=== PATIENT | male | born 1950 | race Caucasian/White ===

== ENCOUNTER 2018-04-30 10:09 | Inpatient (IN) | payer MEDICARE, MEDICAID ==
[2018-04-30] MEDS: SOD CHLORIDE 0.9% 1,000 ML IV (10:29)
[2018-04-30] MEDS: LORAZEPAM 2 MG INJ IV (10:29)
[2018-04-30 10:41] LABS: ADD MAN DIFF? NO
[2018-04-30 10:42] LABS: WHITE BLOOD COUNT 16.1 10^3/ul (4.8-10.8)
[2018-04-30 10:42] LABS: HEMATOCRIT 26.4 % (42.0-52.0); HEMOGLOBIN 8.1 g/dl (14.0-18.0); MEAN CORPUSCULAR HEMOGLOBIN 26.8 pg (29.0-33.0); MEAN CORPUSCULAR HGB CONC 30.7 g/dl (32.0-37.0); MEAN CORPUSCULAR VOLUME 87.4 fl (82.0-101.0); RED BLOOD COUNT 3.02 10^6/ul (4.70-6.10); RED CELL DISTRIBUTION WIDTH 15.2 % (11.5-14.5)
[2018-04-30 10:43] LABS: BASOPHIL # 0.1 10^3/ul (0.0-0.1); BASOPHILS % 0.3 % (0.0-2.0); EOSINOPHILS % 0.2 % (0.0-7.0); LYMPHOCYTES % 6.2 % (15.0-51.0); MEAN PLATELET VOLUME 9.5 fl (7.4-10.4); MONOCYTE # 0.9 10^3/ul (0.3-0.9); MONOCYTES % 5.8 % (0.0-11.0); NEUTROPHILS % 86.9 % (39.0-77.0); PLATELET COUNT 393 10^3/UL (140-415)
[2018-04-30 11:00] LABS: INR 1.11; PROTIME 14.5 Sec (11.9-14.9); PT RATIO 1.1
[2018-04-30 11:01] LABS: PARTIAL THROMBOPLASTIN TIME 30.9 Sec (23.0-35.0)
[2018-04-30 11:04] LABS: ALANINE AMINOTRANSFERASE 34 IU/L (13-69); ALBUMIN 3.2 g/dl (3.3-4.9); ALBUMIN/GLOBULIN RATIO 1.03; ALKALINE PHOSPHATASE 67 IU/L (42-121); ANION GAP 11 (5-13); ASPARTATE AMINO TRANSFERASE 37 IU/L (15-46); BILIRUBIN,INDIRECT 0.1 mg/dl (0-1.1); BILIRUBIN,TOTAL 0.1 mg/dl (0.2-1.3); BLOOD UREA NITROGEN 41 mg/dl (7-20); CALCIUM 8.7 mg/dl (8.4-10.2); CARBON DIOXIDE 25 mmol/L (21-31); CHLORIDE 103 mmol/L (97-110); CREATININE 1.01 mg/dl (0.61-1.24); Estimated GFR > 60 mL/min (>60); GLUCOSE 132 mg/dl (70-220); POTASSIUM 4.6 mmol/L (3.5-5.1); SODIUM 139 mmol/L (135-144); TOTAL PROTEIN 6.3 g/dl (6.1-8.1)
[2018-04-30] MEDS: PANTOPRAZOLE IV 80 MG in SOD CHLORIDE 0.9% 100 ML IVPB (11:05)
[2018-04-30 11:14] LABS: TROPONIN-I < 0.012 ng/ml (0.000-0.120)
[2018-04-30] MEDS ORDERED: ONDANSETRON 4 MG INJ IV ×2 (12:00→13:30)
[2018-04-30] MEDS ORDERED: ACETAMINOPHEN 325 MG TAB PO (12:00)
[2018-04-30] MEDS ORDERED: NACL 0.9% 3 ML SYG IV (13:30)
[2018-04-30] MEDS: METOCLOPRAMIDE 10 MG INJ IV ×3 (14:18→23:53)
[2018-04-30] MEDS: MAGNESIUM HYDROXIDE 30ML CUP PO (14:18)
[2018-04-30] MEDS: OXYCODONE/ACETAMINOPHEN (5/325) TAB PO (14:19)
[2018-04-30] MEDS: DOCUSATE SODIUM 100 MG CAP PO ×2 (14:19→23:53)
[2018-04-30 14:22] LABS: IRON 34 ug/dl (35-150)
[2018-04-30 14:32] LABS: % IRON SATURATION 10 % SAT (22-52); TOTAL IRON BINDING CAPACITY 347 ug/dl (241-421)
[2018-04-30 15:01] LABS: FERRITIN 9.2 ng/ml (11.1-264.0)
[2018-04-30 15:31] LABS: FOLATE 6.1 ng/ml (2.8-20.0)
[2018-04-30] MEDS: morphine 2 MG INJ IV (16:07)
[2018-04-30] MEDS ORDERED: HYDROmorphONE 2 MG/ML SYG IV (18:00)
[2018-04-30] MEDS: DIPHENHYDRAMINE 50 MG INJ IV ×2 (18:47→23:53)
[2018-04-30 18:51] LABS: HEMATOCRIT 19.9 % (42.0-52.0)
[2018-04-30 18:57] LABS: HEMOGLOBIN 6.3 g/dl (14.0-18.0)
[2018-04-30] MEDS: ATORVASTATIN 40 MG TAB PO (20:44)
[2018-04-30] MEDS: LEVETIRACETAM 500 MG TAB PO (20:44)
[2018-04-30] MEDS: SOD CHLORIDE 0.9% 500 ML IV (20:44)
[2018-04-30] MEDS: PANTOPRAZOLE 40 MG INJ IV (20:44)
[2018-04-30] MEDS: traZODone 50 MG TAB PO (20:45)
[2018-04-30 23:10] LABS: IMMEDIATE SPIN CROSSMATCH 1 2
[2018-04-30] MEDS: MIDODRINE 5 MG TAB PO (23:53)
[2018-05-01] MEDS: ACETAMINOPHEN 325 MG TAB PO (02:30)
[2018-05-01] MEDS: DIPHENHYDRAMINE 50 MG INJ IV (06:00)
[2018-05-01 06:21] LABS: ADD MAN DIFF? NO
[2018-05-01 06:27] LABS: WHITE BLOOD COUNT 10.7 10^3/ul (4.8-10.8)
[2018-05-01 06:27] LABS: BASOPHIL # 0.1 10^3/ul (0.0-0.1); BASOPHILS % 0.5 % (0.0-2.0); EOSINOPHILS # 0.1 10^3/ul (0.0-0.5); HEMOGLOBIN 9.3 g/dl (14.0-18.0); LYMPHOCYTES # 0.9 10^3/ul (0.8-2.9); LYMPHOCYTES % 8.5 % (15.0-51.0); MEAN CORPUSCULAR HEMOGLOBIN 27.4 pg (29.0-33.0); MEAN CORPUSCULAR HGB CONC 32.1 g/dl (32.0-37.0); MEAN CORPUSCULAR VOLUME 85.3 fl (82.0-101.0); MEAN PLATELET VOLUME 9.5 fl (7.4-10.4); MONOCYTE # 0.5 10^3/ul (0.3-0.9); MONOCYTES % 4.6 % (0.0-11.0); NEUTROPHIL # 9.1 10^3/ul (1.6-7.5); NEUTROPHILS % 84.9 % (39.0-77.0); PLATELET COUNT 303 10^3/UL (140-415); RED CELL DISTRIBUTION WIDTH 15.7 % (11.5-14.5)
[2018-05-01 06:59] LABS: ALANINE AMINOTRANSFERASE 44 IU/L (13-69); ALBUMIN 2.9 g/dl (3.3-4.9); ALBUMIN/GLOBULIN RATIO 1.16; ALKALINE PHOSPHATASE 54 IU/L (42-121); ANION GAP 7 (5-13); ASPARTATE AMINO TRANSFERASE 53 IU/L (15-46); BILIRUBIN,INDIRECT 0.5 mg/dl (0-1.1); BILIRUBIN,TOTAL 0.5 mg/dl (0.2-1.3); BLOOD UREA NITROGEN 36 mg/dl (7-20); CALCIUM 8.1 mg/dl (8.4-10.2); CARBON DIOXIDE 23 mmol/L (21-31); CHLORIDE 109 mmol/L (97-110); CHOLESTEROL 83 mg/dl (100-200); Estimated GFR > 60 mL/min (>60); GLUCOSE 103 mg/dl (70-220); HDL CHOLESTEROL 27 mg/dl (30-78); LDL CHOLESTEROL,CALCULATED 35 mg/dl; MAGNESIUM 1.7 mg/dl (1.7-2.5); PHOSPHORUS 2.2 mg/dl (2.5-4.9); POTASSIUM 3.9 mmol/L (3.5-5.1); SODIUM 139 mmol/L (135-144); TOTAL PROTEIN 5.4 g/dl (6.1-8.1); TRIGLYCERIDES 107 mg/dl (0-149)
[2018-05-01 07:05] LABS: OCCULT BLOOD STOOL NEGATIVE (NEGATIVE)
[2018-05-01] MEDS: METOCLOPRAMIDE 10 MG INJ IV (07:40)
[2018-05-01] MEDS: clonAZEPAM 0.5 MG TAB PO (07:40)
[2018-05-01 07:52] LABS: HEMOGLOBIN A1C 5.5 % (0-5.9)
[2018-05-01] MEDS: PANTOPRAZOLE 40 MG INJ IV (08:58)
[2018-05-01] MEDS: LEVETIRACETAM 500 MG TAB PO (08:59)
[2018-05-01] MEDS: FLUOXETINE 20 MG CAP PO (08:59)
[2018-05-01] MEDS ORDERED: CLOPIDOGREL 75 MG TAB PO (09:00)
[2018-05-01] MEDS: MAGNESIUM HYDROXIDE 30ML CUP PO (09:00)
[2018-05-01] MEDS ORDERED: morphine 2 MG INJ IV (09:30)
[2018-05-01] MEDS ORDERED: LORAZEPAM 2 MG INJ IV (09:30)
[2018-05-01 10:03] LABS: HEMATOCRIT 26.8 % (42.0-52.0); HEMOGLOBIN 8.7 g/dl (14.0-18.0)
[2018-05-01 10:20] LABS: CREATINE KINASE 48 IU/L (23-200)
[2018-05-01 10:49] LABS: CK INDEX 1.6; CK-MB 0.78 ng/ml (0.0-2.4); TROPONIN-I < 0.012 ng/ml (0.000-0.120)
[2018-05-01] MEDS ORDERED: OXYCODONE/ACETAMINOPHEN (5/325) TAB PO (12:00)
[2018-05-01] MEDS ORDERED: SOD FERRIC GLUC COMPLX 125 MG in SOD CHLORIDE 0.9% 100 ML IVPB (17:00)
== END 2018-05-01 12:40 | disposition left against medical advice (07) | DRG 378 ==
LOC: E/R 10:09 → 5EC 11:38
PROC: 30233N1 Transfusion of Nonautologous Red Blood Cells into Peripheral Vein, Percutaneous Approach (ICD-10-PCS; principal; 2018-04-30)
DX: K92.0 Hematemesis (principal); I42.9 Cardiomyopathy, unspecified; D64.9 Anemia, unspecified; R14.0 Abdominal distension (gaseous); K59.00 Constipation, unspecified; E86.0 Dehydration; G89.4 Chronic pain syndrome; F32.9 Major depressive disorder, single episode, unspecified; E88.09 Other disorders of plasma-protein metabolism, not elsewhere classified; D72.829 Elevated white blood cell count, unspecified; Z79.02 Long term (current) use of antithrombotics/antiplatelets; Z79.82 Long term (current) use of aspirin
CPT/HCPCS: 36430; 74176; 80053; 80061; 82270; 82550; 82553; 82607; 82728; 82746; 83036; 83540; 83735; 84100; 84484; 85014; 85018; 85025; 85610; 85730; 86644; 86850; 86900; 86901; 86920; 90686; 93005; 93306; 96374; 96375; 99285-25

== ENCOUNTER 2018-07-01 18:21 | Inpatient (IN) | payer MEDICARE ==
[2018-07-01] MEDS: VANCOMYCIN 1 GM (PMX) 250 ML IVPB (18:30)
[2018-07-01 18:52] LABS: RED BLOOD COUNT 1.31 10^6/ul (4.70-6.10)
[2018-07-01 18:52] LABS: WHITE BLOOD COUNT 15.3 10^3/ul (4.8-10.8)
[2018-07-01 18:53] LABS: MEAN CORPUSCULAR HEMOGLOBIN 22.1 pg (29.0-33.0); MEAN CORPUSCULAR VOLUME 76.3 fl (82.0-101.0)
[2018-07-01 18:54] LABS: MEAN PLATELET VOLUME 10.1 fl (7.4-10.4); PLATELET COUNT 376 10^3/UL (140-415)
[2018-07-01 18:56] LABS: RED CELL DISTRIBUTION WIDTH 16.3 % (11.5-14.5)
[2018-07-01 18:57] LABS: ADD MAN DIFF? YES
[2018-07-01 18:58] LABS: HEMOGLOBIN 2.9 g/dl (14.0-18.0)
[2018-07-01 18:59] LABS: PATH REVIEW? YES
[2018-07-01] MEDS: SOD CHLORIDE 0.9% 0 ML IV (18:59)
[2018-07-01 19:05] LABS: INR 1.15; PROTIME 14.8 Sec (11.9-14.9); PT RATIO 1.2
[2018-07-01 19:06] LABS: PARTIAL THROMBOPLASTIN TIME 27.9 Sec (23.0-35.0)
[2018-07-01 19:09] LABS: ALANINE AMINOTRANSFERASE 22 IU/L (13-69); ALBUMIN 2.5 g/dl (3.3-4.9); ALBUMIN/GLOBULIN RATIO 0.96; ALKALINE PHOSPHATASE 58 IU/L (42-121); ANION GAP 5 (5-13); ASPARTATE AMINO TRANSFERASE 21 IU/L (15-46); BLOOD UREA NITROGEN 33 mg/dl (7-20); CALCIUM 7.8 mg/dl (8.4-10.2); CARBON DIOXIDE 24 mmol/L (21-31); CHLORIDE 104 mmol/L (97-110); CREATININE 1.19 mg/dl (0.61-1.24); Estimated GFR > 60 mL/min (>60); GLUCOSE 137 mg/dl (70-220); SODIUM 133 mmol/L (135-144); TOTAL PROTEIN 5.1 g/dl (6.1-8.1)
[2018-07-01] MEDS: CEFEPIME 2GM/50 ML (PMX) 50 ML IVPB (19:09)
[2018-07-01] MEDS: SOD CHLORIDE 0.9% 2,250 ML IV (19:09)
[2018-07-01 19:12] LABS: ACETAMINOPHEN < 10.0 ug/ml (10.0-30.0); ETHANOL < 10.0 mg/dl (0-0); SALICYLATE < 1.0 mg/dl (5.0-30.0)
[2018-07-01 19:18] LABS: ADD UMIC NO; UR ASCORBIC ACID NEGATIVE (NEGATIVE); UR BILIRUBIN (Dip) NEGATIVE (NEGATIVE); UR BLOOD (Dip) NEGATIVE (NEGATIVE); UR CLARITY CLEAR (CLEAR); UR COLOR YELLOW (YELLOW); UR GLUCOSE (Dip) NEGATIVE (NEGATIVE); UR KETONES (Dip) NEGATIVE (NEGATIVE); UR LEUKOCYTE ESTERASE (Dip) NEGATIVE Leu/ul (NEGATIVE); UR NITRITE (Dip) NEGATIVE (NEGATIVE); UR SPECIFIC GRAVITY (Dip) 1.016 (1.003-1.030); UR TOTAL PROTEIN (Dip) NEGATIVE (NEGATIVE); UR UROBILINOGEN (Dip) NEGATIVE (NEGATIVE)
[2018-07-01 19:21] LABS: TROPONIN-I 0.022 ng/ml (0.000-0.120)
[2018-07-01 19:38] LABS: AMPHETAMINE/METHAMPHETAMINE Negative (NEGATIVE); BARBITURATES Negative (NEGATIVE); BENZODIAZEPINES Negative (NEGATIVE); COCAINE Negative (NEGATIVE)
[2018-07-01 19:52] LABS: CANNABINOIDS Positive (NEGATIVE); OPIATES Positive (NEGATIVE)
[2018-07-01 19:54] LABS: T3 UPTAKE 50.1 % (23.5-40.5)
[2018-07-01 19:55] LABS: FREE THYROXINE INDEX (Calc) 1.75 ug/ml (0.65-3.89); T4 (THYROXINE) 3.5 ug/dl (5.5-11.0)
[2018-07-01] MEDS: PANTOPRAZOLE IV 80 MG in SOD CHLORIDE 0.9% 100 ML IV ×2 (20:18→21:06)
[2018-07-01 20:19] LABS: ANISOCYTOSIS 2+ (0-0); EOSINOPHILS % (M) 1 % (0-7); ERYTHROBLAST% (NRBC) (M) 2 % (0-0); HYPOCHROMASIA 3+ (0-0); LYMPHOCYTES #M 1.8 10^3/ul (0.8-2.9); LYMPHOCYTES % (M) 12 % (15-51); MICROCYTOSIS 2+ (0-0); MONOCYTE #M 0.6 10^3/ul (0.3-0.9); MONOCYTES % (M) 4 % (0-11); PLATELET ESTIMATE NORMAL; POIKILOCYTOSIS 1+ (0-0); POLYCHROMASIA 1+ (0-0); SEGMENTED NEUTROPHILS (M) % 83 % (39-77)
[2018-07-01] MEDS: PANTOPRAZOLE IV 80 MG in SOD CHLORIDE 0.9% 100 ML IVPB (20:19)
[2018-07-01] MEDS ORDERED: IPRATROPIUM (NEB) 0.5 MG/2.5 ML AMP NEB (20:30)
[2018-07-01] MEDS ORDERED: ALBUTEROL 0.083% (NEB) 2.5 MG/3 ML AMP NEB (20:30)
[2018-07-01] MEDS: FUROSEMIDE 20 MG INJ IV (20:30)
[2018-07-01] MEDS ORDERED: ACETAMINOPHEN 650MG/20.3ML CUP PO (20:30)
[2018-07-01] MEDS: LEVETIRACETAM 1000 MG (PMX) 100 ML IVPB (21:00)
[2018-07-01 21:24] LABS: THYROID STIMULATING HORMONE 0.325 MIU/L (0.465-4.680)
[2018-07-01 21:28] LABS: FERRITIN 5.5 ng/ml (11.1-264.0)
[2018-07-02] MEDS ORDERED: NORepinephrine 8MG/250 ML (PMX 250 ML IV
[2018-07-02] MEDS: NORepinephrine 8MG/250 ML (PMX 250 ML IV (00:05)
[2018-07-02 00:50] LABS: ADD MAN DIFF? NO
[2018-07-02 00:56] LABS: BASOPHILS % 0.2 % (0.0-2.0); EOSINOPHILS # 0.1 10^3/ul (0.0-0.5); EOSINOPHILS % 0.9 % (0.0-7.0); HEMATOCRIT 23.9 % (42.0-52.0); HEMOGLOBIN 7.8 g/dl (14.0-18.0); LYMPHOCYTES # 1.1 10^3/ul (0.8-2.9); LYMPHOCYTES % 8.1 % (15.0-51.0); MEAN CORPUSCULAR HEMOGLOBIN 27.1 pg (29.0-33.0); MEAN CORPUSCULAR HGB CONC 32.6 g/dl (32.0-37.0); MONOCYTE # 1.3 10^3/ul (0.3-0.9); MONOCYTES % 9.1 % (0.0-11.0); NEUTROPHIL # 11.3 10^3/ul (1.6-7.5); PLATELET COUNT 275 10^3/UL (140-415); RED BLOOD COUNT 2.88 10^6/ul (4.70-6.10); RED CELL DISTRIBUTION WIDTH 15.2 % (11.5-14.5)
[2018-07-02 01:16] LABS: LACTIC ACID 0.8 mmol/L (0.5-2.0)
[2018-07-02 03:13] LABS: IMMEDIATE SPIN CROSSMATCH 1 5
[2018-07-02 06:08] LABS: ADD MAN DIFF? NO
[2018-07-02] MEDS: PANTOPRAZOLE IV 80 MG in SOD CHLORIDE 0.9% 100 ML IV ×2 (06:12→12:56)
[2018-07-02 06:15] LABS: WHITE BLOOD COUNT 14.3 10^3/ul (4.8-10.8)
[2018-07-02 06:15] LABS: BASOPHILS % 0.3 % (0.0-2.0); EOSINOPHILS # 0.4 10^3/ul (0.0-0.5); EOSINOPHILS % 3.1 % (0.0-7.0); HEMATOCRIT 27.6 % (42.0-52.0); HEMOGLOBIN 9.2 g/dl (14.0-18.0); LYMPHOCYTES # 1.2 10^3/ul (0.8-2.9); LYMPHOCYTES % 8.1 % (15.0-51.0); MEAN CORPUSCULAR HEMOGLOBIN 27.5 pg (29.0-33.0); MEAN CORPUSCULAR HGB CONC 33.3 g/dl (32.0-37.0); MEAN CORPUSCULAR VOLUME 82.6 fl (82.0-101.0); MEAN PLATELET VOLUME 9.3 fl (7.4-10.4); MONOCYTE # 1.2 10^3/ul (0.3-0.9); MONOCYTES % 8.6 % (0.0-11.0); NEUTROPHIL # 11.3 10^3/ul (1.6-7.5); NEUTROPHILS % 79.1 % (39.0-77.0); NUCLEATED RED BLOOD CELLS% 0.1 /100WBC (0.0-0.0); PLATELET COUNT 285 10^3/UL (140-415); RED BLOOD COUNT 3.34 10^6/ul (4.70-6.10); RED CELL DISTRIBUTION WIDTH 14.7 % (11.5-14.5)
[2018-07-02 06:32] LABS: ANION GAP 8 (5-13); BLOOD UREA NITROGEN 23 mg/dl (7-20); CALCIUM 6.9 mg/dl (8.4-10.2); CARBON DIOXIDE 21 mmol/L (21-31); CHLORIDE 110 mmol/L (97-110); CREATININE 0.92 mg/dl (0.61-1.24); Estimated GFR > 60 mL/min (>60); GLUCOSE 101 mg/dl (70-220); POTASSIUM 4.3 mmol/L (3.5-5.1); SODIUM 139 mmol/L (135-144)
[2018-07-02 06:37] LABS: IRON 167 ug/dl (35-150)
[2018-07-02 06:38] LABS: LACTIC ACID 1.3 mmol/L (0.5-2.0)
[2018-07-02 06:40] LABS: HDL CHOLESTEROL 20 mg/dl (30-78); TRIGLYCERIDES 74 mg/dl (0-149)
[2018-07-02 06:46] LABS: % IRON SATURATION 51 % SAT (22-52); TOTAL IRON BINDING CAPACITY 327 ug/dl (241-421)
[2018-07-02 06:49] LABS: CHOLESTEROL < 50 mg/dl (100-200)
[2018-07-02] MEDS: NITROGLYCERIN (SL) 0.4 MG TAB SL ×2 (08:01→08:21)
[2018-07-02] MEDS: clonAZEPAM 0.5 MG TAB PO ×2 (09:07→11:51)
[2018-07-02] MEDS: FUROSEMIDE 20 MG INJ IV (09:09)
[2018-07-02 09:38] LABS: ADD MAN DIFF? NO
[2018-07-02 09:48] LABS: WHITE BLOOD COUNT 13.7 10^3/ul (4.8-10.8)
[2018-07-02 09:48] LABS: BASOPHIL # 0.1 10^3/ul (0.0-0.1); BASOPHILS % 0.4 % (0.0-2.0); EOSINOPHILS # 0.3 10^3/ul (0.0-0.5); EOSINOPHILS % 1.9 % (0.0-7.0); HEMATOCRIT 27.6 % (42.0-52.0); HEMOGLOBIN 9.5 g/dl (14.0-18.0); LYMPHOCYTES # 0.7 10^3/ul (0.8-2.9); LYMPHOCYTES % 4.8 % (15.0-51.0); MEAN CORPUSCULAR HEMOGLOBIN 27.9 pg (29.0-33.0); MEAN CORPUSCULAR HGB CONC 34.4 g/dl (32.0-37.0); MEAN CORPUSCULAR VOLUME 80.9 fl (82.0-101.0); MEAN PLATELET VOLUME 9.7 fl (7.4-10.4); MONOCYTES % 7.5 % (0.0-11.0); NEUTROPHIL # 11.5 10^3/ul (1.6-7.5); NEUTROPHILS % 84.2 % (39.0-77.0); NUCLEATED RED BLOOD CELLS% 0.1 /100WBC (0.0-0.0); PLATELET COUNT 288 10^3/UL (140-415); RED BLOOD COUNT 3.41 10^6/ul (4.70-6.10)
[2018-07-02 10:17] LABS: TROPONIN-I 0.035 ng/ml (0.000-0.120)
[2018-07-02] MEDS: LEVETIRACETAM 1000 MG (PMX) 100 ML IVPB ×2 (11:46→21:00)
[2018-07-02] MEDS ORDERED: MAGNESIUM CITRATE 300 ML BTL PO (17:30)
[2018-07-02] MEDS: POLYETHYLENE GLYCOL 3350 119 GM POWDER PO (18:44)
[2018-07-02] MEDS: BISACODYL (EC) 5 MG TAB PO (18:44)
[2018-07-02] MEDS: GABAPENTIN 400 MG CAP PO ×2 (18:44→20:31)
[2018-07-02 20:05] LABS: ADD MAN DIFF? NO
[2018-07-02 20:12] LABS: BASOPHILS % 0.4 % (0.0-2.0); EOSINOPHILS # 0.5 10^3/ul (0.0-0.5); EOSINOPHILS % 4.6 % (0.0-7.0); HEMATOCRIT 28.4 % (42.0-52.0); HEMOGLOBIN 9.6 g/dl (14.0-18.0); LYMPHOCYTES # 1.3 10^3/ul (0.8-2.9); LYMPHOCYTES % 12.1 % (15.0-51.0); MEAN CORPUSCULAR HEMOGLOBIN 27.6 pg (29.0-33.0); MEAN CORPUSCULAR HGB CONC 33.8 g/dl (32.0-37.0); MEAN CORPUSCULAR VOLUME 81.6 fl (82.0-101.0); MEAN PLATELET VOLUME 9.6 fl (7.4-10.4); MONOCYTE # 1.1 10^3/ul (0.3-0.9); MONOCYTES % 10.6 % (0.0-11.0); NEUTROPHIL # 7.6 10^3/ul (1.6-7.5); NEUTROPHILS % 71.6 % (39.0-77.0); NUCLEATED RED BLOOD CELLS% 0.3 /100WBC (0.0-0.0); PLATELET COUNT 268 10^3/UL (140-415); RED BLOOD COUNT 3.48 10^6/ul (4.70-6.10); RED CELL DISTRIBUTION WIDTH 15.1 % (11.5-14.5)
[2018-07-02 20:12] LABS: WHITE BLOOD COUNT 10.6 10^3/ul (4.8-10.8)
[2018-07-02] MEDS: ATORVASTATIN 20 MG TAB PO (20:31)
[2018-07-02] MEDS: traZODone 100 MG TAB PO (20:31)
[2018-07-02] MEDS: DOCUSATE SODIUM 100 MG CAP PO (20:31)
[2018-07-02] MEDS: MIRTAZAPINE 15 MG TAB PO (20:31)
[2018-07-03] MEDS: PANTOPRAZOLE IV 80 MG in SOD CHLORIDE 0.9% 100 ML IV ×3 (02:30→22:20)
[2018-07-03 03:18] LABS: ADD MAN DIFF? NO
[2018-07-03 03:19] LABS: BASOPHIL # 0.1 10^3/ul (0.0-0.1); BASOPHILS % 0.6 % (0.0-2.0); EOSINOPHILS # 0.8 10^3/ul (0.0-0.5); EOSINOPHILS % 8.3 % (0.0-7.0); HEMATOCRIT 28.8 % (42.0-52.0); HEMOGLOBIN 9.7 g/dl (14.0-18.0); LYMPHOCYTES # 1.2 10^3/ul (0.8-2.9); LYMPHOCYTES % 12.7 % (15.0-51.0); MEAN CORPUSCULAR HEMOGLOBIN 27.6 pg (29.0-33.0); MEAN CORPUSCULAR HGB CONC 33.7 g/dl (32.0-37.0); MEAN CORPUSCULAR VOLUME 82.1 fl (82.0-101.0); MEAN PLATELET VOLUME 9.8 fl (7.4-10.4); MONOCYTE # 1.1 10^3/ul (0.3-0.9); MONOCYTES % 11.1 % (0.0-11.0); NEUTROPHIL # 6.5 10^3/ul (1.6-7.5); NEUTROPHILS % 66.6 % (39.0-77.0); PLATELET COUNT 258 10^3/UL (140-415); RED BLOOD COUNT 3.51 10^6/ul (4.70-6.10); RED CELL DISTRIBUTION WIDTH 15.2 % (11.5-14.5)
[2018-07-03 03:19] LABS: WHITE BLOOD COUNT 9.8 10^3/ul (4.8-10.8)
[2018-07-03] MEDS: POLYETHYLENE GLYCOL 3350 119 GM POWDER PO (05:43)
[2018-07-03] MEDS: GABAPENTIN 400 MG CAP PO ×2 (09:04→17:00)
[2018-07-03] MEDS: BISACODYL (EC) 5 MG TAB PO (09:04)
[2018-07-03] MEDS: FLUOXETINE 20 MG CAP PO (09:04)
[2018-07-03] MEDS: LEVETIRACETAM 1000 MG (PMX) 100 ML IVPB ×2 (09:04→20:49)
[2018-07-03] MEDS ORDERED: CALCIUM GLUCONATE 10% 2 GM in DEXTROSE 5% 100 ML IVPB (12:00)
[2018-07-03 15:14] LABS: CREATINE KINASE 38 IU/L (23-200)
[2018-07-03] MEDS: CALCIUM GLUCONATE 10% 2 GM in SOD CHLORIDE 0.9% 100 ML IVPB (15:21)
[2018-07-03 15:27] LABS: CK INDEX 1.6; TROPONIN-I < 0.012 ng/ml (0.000-0.120)
[2018-07-03] MEDS: PROPOFOL 40 ML (17:29)
[2018-07-03] MEDS ORDERED: ONDANSETRON 4 MG INJ IV (17:30)
[2018-07-03] MEDS ORDERED: EPHEDrine SULFATE 50 MG/5 ML SYG IV (17:30)
[2018-07-03] MEDS ORDERED: FENTAnyl 50 MCG/ML VIAL IV (17:30)
[2018-07-03] MEDS ORDERED: hydrALAzine 20 MG INJ IV (17:30)
[2018-07-03] MEDS ORDERED: LABETALOL HCL 20MG INJ IV (17:30)
[2018-07-03] MEDS ORDERED: morphine (1 MG/ML) 10ML SYRINGE IV (17:30)
[2018-07-03] MEDS: METOCLOPRAMIDE 10 MG TAB PO ×2 (18:00→22:00)
[2018-07-03] MEDS: SUCRALFATE (100 MG/ML) 10ML CUP PO (20:41)
[2018-07-03] MEDS: DOCUSATE SODIUM 100 MG CAP PO (20:42)
[2018-07-03] MEDS: MIRTAZAPINE 15 MG TAB PO (20:43)
[2018-07-03] MEDS: traZODone 100 MG TAB PO ×2 (20:43→20:52)
[2018-07-03] MEDS: ATORVASTATIN 20 MG TAB PO (20:48)
[2018-07-03] MEDS: morphine SULFATE/PF (2 MG/2 ML) SYG IV (22:23)
[2018-07-04] MEDS: GABAPENTIN 400 MG CAP PO ×3 (01:07→16:04)
[2018-07-04] MEDS: PANTOPRAZOLE IV 80 MG in SOD CHLORIDE 0.9% 100 ML IV (02:00)
[2018-07-04] MEDS: METOCLOPRAMIDE 10 MG TAB PO ×3 (06:00→21:05)
[2018-07-04] MEDS: ONDANSETRON 4 MG INJ IV (08:37)
[2018-07-04] MEDS: FLUOXETINE 20 MG CAP PO (08:38)
[2018-07-04] MEDS: SUCRALFATE (100 MG/ML) 10ML CUP PO ×4 (08:38→20:44)
[2018-07-04] MEDS: LEVETIRACETAM 1000 MG (PMX) 100 ML IVPB ×2 (08:43→20:44)
[2018-07-04] MEDS: morphine SULFATE/PF (2 MG/2 ML) SYG IV ×2 (08:50→21:36)
[2018-07-04 11:35] LABS: IRON 19 ug/dl (35-150)
[2018-07-04 11:45] LABS: % IRON SATURATION 6 % SAT (22-52); TOTAL IRON BINDING CAPACITY 310 ug/dl (241-421)
[2018-07-04] MEDS: SOD FERRIC GLUC COMPLX 125 MG in SOD CHLORIDE 0.9% 100 ML IVPB (13:40)
[2018-07-04] MEDS: LIDOCAINE/MYLANTA 40 ML BTL PO (15:05)
[2018-07-04] MEDS: DOCUSATE SODIUM 100 MG CAP PO (20:43)
[2018-07-04] MEDS: traZODone 100 MG TAB PO (20:45)
[2018-07-04] MEDS: ATORVASTATIN 20 MG TAB PO (20:46)
[2018-07-04] MEDS: MIRTAZAPINE 15 MG TAB PO (20:47)
[2018-07-04] MEDS: RANITIDINE 150 MG TAB PO (20:47)
[2018-07-05] MEDS: GABAPENTIN 400 MG CAP PO ×3 (00:08→16:30)
[2018-07-05] MEDS: METOCLOPRAMIDE 10 MG TAB PO ×3 (05:22→21:00)
[2018-07-05] MEDS: PANTOPRAZOLE (EC) 40 MG TAB PO (05:22)
[2018-07-05] MEDS: LEVETIRACETAM 1000 MG (PMX) 100 ML IVPB ×2 (08:25→20:54)
[2018-07-05] MEDS: SUCRALFATE (100 MG/ML) 10ML CUP PO ×4 (08:25→20:56)
[2018-07-05] MEDS: FLUOXETINE 20 MG CAP PO (08:26)
[2018-07-05] MEDS: clonAZEPAM 0.5 MG TAB PO (10:08)
[2018-07-05] MEDS: SOD FERRIC GLUC COMPLX 125 MG in SOD CHLORIDE 0.9% 100 ML IVPB (13:00)
[2018-07-05] MEDS: LOPERAMIDE HCL 1 MG/5 ML LIQUID (10 ML UD CUP) PO (14:58)
[2018-07-05] MEDS: DOCUSATE SODIUM 100 MG CAP PO (20:56)
[2018-07-05] MEDS: LORAZEPAM 0.5 MG TAB PO (20:56)
[2018-07-05] MEDS: RANITIDINE 150 MG TAB PO (20:57)
[2018-07-05] MEDS: ATORVASTATIN 20 MG TAB PO (20:57)
[2018-07-05] MEDS: MIRTAZAPINE 15 MG TAB PO (20:57)
[2018-07-05] MEDS: traZODone 100 MG TAB PO (20:57)
[2018-07-06] MEDS: GABAPENTIN 400 MG CAP PO ×2 (00:19→08:22)
[2018-07-06] MEDS: clonAZEPAM 0.5 MG TAB PO (00:19)
[2018-07-06] MEDS: METOCLOPRAMIDE 10 MG TAB PO (06:00)
[2018-07-06] MEDS: PANTOPRAZOLE (EC) 40 MG TAB PO (06:16)
[2018-07-06] MEDS: SUCRALFATE (100 MG/ML) 10ML CUP PO ×2 (08:21→13:00)
[2018-07-06] MEDS: FLUOXETINE 20 MG CAP PO (08:21)
[2018-07-06] MEDS: LEVETIRACETAM 1000 MG (PMX) 100 ML IVPB (08:24)
[2018-07-06] MEDS: DIPHENOXYLATE/ATROPINE TAB PO (08:36)
[2018-07-06] MEDS: SOD FERRIC GLUC COMPLX 125 MG in SOD CHLORIDE 0.9% 100 ML IVPB (13:00)
== END 2018-07-06 13:07 | disposition home or self-care (01) | DRG 812 ==
LOC: ICU 19:24 → E/R 18:21 → TEL 07-02 12:08
PROC: 30233N1 Transfusion of Nonautologous Red Blood Cells into Peripheral Vein, Percutaneous Approach (ICD-10-PCS; principal; 2018-07-03 17:00)
PROC: 0DB68ZX Excision of Stomach, Via Natural or Artificial Opening Endoscopic, Diagnostic (ICD-10-PCS; 2018-07-03 17:00)
PROC: 0DJD8ZZ Inspection of Lower Intestinal Tract, Via Natural or Artificial Opening Endoscopic (ICD-10-PCS; 2018-07-03 17:00)
DX: D62 Acute posthemorrhagic anemia (principal); K22.10 Ulcer of esophagus without bleeding; E87.2 Acidosis; I42.9 Cardiomyopathy, unspecified; G93.40 Encephalopathy, unspecified; G40.909 Epilepsy, unspecified, not intractable, without status epilepticus; I25.10 Atherosclerotic heart disease of native coronary artery without angina pectoris; G89.29 Other chronic pain; F32.9 Major depressive disorder, single episode, unspecified; I10 Essential (primary) hypertension; K64.8 Other hemorrhoids; K44.9 Diaphragmatic hernia without obstruction or gangrene; K29.70 Gastritis, unspecified, without bleeding; J44.9 Chronic obstructive pulmonary disease, unspecified; R13.10 Dysphagia, unspecified; F12.90 Cannabis use, unspecified, uncomplicated; Z87.891 Personal history of nicotine dependence
CPT/HCPCS: 36415; 36430; 70450; 71045; 74176; 80048; 80053; 80061; 80307; 81003; 82550; 82553; 82728; 83540; 83605; 84436; 84443; 84479; 84484; 85025; 85610; 85730; 86644; 86850; 86900; 86901; 86920; 87040; 87081; 87086; 88305; 88312; 88313; 93005; 96365; 96375; 99285-25

== ENCOUNTER 2018-07-17 20:05 | Inpatient (IN) | payer MEDICARE ==
[2018-07-17 21:08] LABS: ADD MAN DIFF? NO
[2018-07-17 21:10] LABS: BASOPHILS % 0.3 % (0.0-2.0); EOSINOPHILS # 0.1 10^3/ul (0.0-0.5); HEMATOCRIT 34.3 % (42.0-52.0); LYMPHOCYTES % 8.1 % (15.0-51.0); MEAN CORPUSCULAR HEMOGLOBIN 28.4 pg (29.0-33.0); MEAN CORPUSCULAR HGB CONC 32.1 g/dl (32.0-37.0); MEAN CORPUSCULAR VOLUME 88.4 fl (82.0-101.0); MEAN PLATELET VOLUME 10.2 fl (7.4-10.4); MONOCYTE # 0.5 10^3/ul (0.3-0.9); MONOCYTES % 4.4 % (0.0-11.0); NEUTROPHIL # 10.2 10^3/ul (1.6-7.5); NEUTROPHILS % 85.8 % (39.0-77.0); PLATELET COUNT 425 10^3/UL (140-415); RED BLOOD COUNT 3.88 10^6/ul (4.70-6.10); RED CELL DISTRIBUTION WIDTH 18.7 % (11.5-14.5)
[2018-07-17 21:10] LABS: WHITE BLOOD COUNT 11.9 10^3/ul (4.8-10.8)
[2018-07-17] MEDS: ONDANSETRON 4 MG INJ IV (21:11)
[2018-07-17] MEDS: LIDOCAINE/MYLANTA 40 ML BTL PO (21:11)
[2018-07-17] MEDS: morphine 2 MG INJ IV (21:12)
[2018-07-17] MEDS: PANTOPRAZOLE 40 MG INJ IV (21:12)
[2018-07-17] MEDS: SOD CHLORIDE 0.9% 500 ML IV (21:13)
[2018-07-17 21:30] LABS: INR 0.95; PARTIAL THROMBOPLASTIN TIME 30.7 Sec (23.0-35.0); PROTIME 12.8 Sec (11.9-14.9)
[2018-07-17 21:43] LABS: ALANINE AMINOTRANSFERASE 86 IU/L (13-69); ALBUMIN 3.4 g/dl (3.3-4.9); ALKALINE PHOSPHATASE 135 IU/L (42-121); ANION GAP 11 (5-13); ASPARTATE AMINO TRANSFERASE 48 IU/L (15-46); BLOOD UREA NITROGEN 20 mg/dl (7-20); CARBON DIOXIDE 30 mmol/L (21-31); CHLORIDE 97 mmol/L (97-110); Estimated GFR > 60 mL/min (>60); GLUCOSE 145 mg/dl (70-220); LIPASE 54 U/L (23-300); POTASSIUM 3.8 mmol/L (3.5-5.1); SODIUM 138 mmol/L (135-144); TOTAL PROTEIN 6.8 g/dl (6.1-8.1)
[2018-07-17 21:55] LABS: TROPONIN-I < 0.012 ng/ml (0.000-0.120)
[2018-07-17] MEDS ORDERED: ONDANSETRON 4 MG INJ IV ×2 (23:00)
[2018-07-17] MEDS ORDERED: ACETAMINOPHEN 325 MG TAB PO ×2 (23:00)
[2018-07-17] MEDS ORDERED: NACL 0.9% 3 ML SYG IV (23:00)
[2018-07-18] MEDS: SOD CHLORIDE 0.9% 1,000 ML IV ×3 (01:38→19:46)
[2018-07-18] MEDS: SUCRALFATE 1 GM TAB PO ×5 (01:38→23:14)
[2018-07-18 03:13] LABS: ADD MAN DIFF? NO
[2018-07-18 03:36] LABS: ALANINE AMINOTRANSFERASE 62 IU/L (13-69); ALBUMIN 2.7 g/dl (3.3-4.9); ALBUMIN/GLOBULIN RATIO 0.93; ALKALINE PHOSPHATASE 89 IU/L (42-121); ANION GAP 8 (5-13); ASPARTATE AMINO TRANSFERASE 36 IU/L (15-46); BLOOD UREA NITROGEN 18 mg/dl (7-20); CALCIUM 8.7 mg/dl (8.4-10.2); CARBON DIOXIDE 26 mmol/L (21-31); CHLORIDE 104 mmol/L (97-110); CREATININE 0.86 mg/dl (0.61-1.24); Estimated GFR > 60 mL/min (>60); GLUCOSE 120 mg/dl (70-220); POTASSIUM 4.6 mmol/L (3.5-5.1); SODIUM 138 mmol/L (135-144); TOTAL PROTEIN 5.6 g/dl (6.1-8.1)
[2018-07-18 04:50] LABS: WHITE BLOOD COUNT 9.3 10^3/ul (4.8-10.8)
[2018-07-18 04:50] LABS: BASOPHIL # 0.1 10^3/ul (0.0-0.1); BASOPHILS % 0.5 % (0.0-2.0); EOSINOPHILS % 0.4 % (0.0-7.0); HEMATOCRIT 30.1 % (42.0-52.0); HEMOGLOBIN 9.3 g/dl (14.0-18.0); LYMPHOCYTES # 1.1 10^3/ul (0.8-2.9); LYMPHOCYTES % 11.4 % (15.0-51.0); MEAN CORPUSCULAR HEMOGLOBIN 28.1 pg (29.0-33.0); MEAN CORPUSCULAR HGB CONC 30.9 g/dl (32.0-37.0); MEAN CORPUSCULAR VOLUME 90.9 fl (82.0-101.0); MEAN PLATELET VOLUME 10.4 fl (7.4-10.4); MONOCYTE # 0.6 10^3/ul (0.3-0.9); MONOCYTES % 5.9 % (0.0-11.0); NEUTROPHIL # 7.6 10^3/ul (1.6-7.5); NEUTROPHILS % 81.2 % (39.0-77.0); PLATELET COUNT 382 10^3/UL (140-415); RED BLOOD COUNT 3.31 10^6/ul (4.70-6.10); RED CELL DISTRIBUTION WIDTH 18.7 % (11.5-14.5)
[2018-07-18] MEDS: PANTOPRAZOLE 40 MG INJ IV ×2 (05:15→19:16)
[2018-07-18] MEDS ORDERED: NON-FORMULARY/PATIENT OWN MED (Quetiapine Fumarate* 50 MG) PO (06:00)
[2018-07-18] MEDS: QUETIAPINE 25 MG TAB PO ×3 (06:15→21:13)
[2018-07-18] MEDS ORDERED: morphine 2 MG INJ IV (06:30)
[2018-07-18] MEDS: morphine 4 MG/ML VIAL IV ×2 (06:38→11:39)
[2018-07-18 08:58] LABS: ADD MAN DIFF? NO; BASOPHILS % 0.4 % (0.0-2.0); EOSINOPHILS # 0.2 10^3/ul (0.0-0.5); HEMOGLOBIN 9.2 g/dl (14.0-18.0); LYMPHOCYTES # 1.2 10^3/ul (0.8-2.9); LYMPHOCYTES % 16.2 % (15.0-51.0); MEAN CORPUSCULAR HEMOGLOBIN 28.3 pg (29.0-33.0); MEAN CORPUSCULAR HGB CONC 31.7 g/dl (32.0-37.0); MEAN CORPUSCULAR VOLUME 89.2 fl (82.0-101.0); MEAN PLATELET VOLUME 9.7 fl (7.4-10.4); MONOCYTE # 0.6 10^3/ul (0.3-0.9); MONOCYTES % 8.4 % (0.0-11.0); NEUTROPHIL # 5.4 10^3/ul (1.6-7.5); NEUTROPHILS % 72.3 % (39.0-77.0); PLATELET COUNT 340 10^3/UL (140-415); RED BLOOD COUNT 3.25 10^6/ul (4.70-6.10); RED CELL DISTRIBUTION WIDTH 18.9 % (11.5-14.5)
[2018-07-18 08:58] LABS: WHITE BLOOD COUNT 7.4 10^3/ul (4.8-10.8)
[2018-07-18] MEDS: clonAZEPAM 0.5 MG TAB PO (09:26)
[2018-07-18] MEDS: FLUOXETINE 20 MG CAP PO (09:28)
[2018-07-18] MEDS: SPIRONOLACTONE 25 MG TAB PO (09:28)
[2018-07-18] MEDS: LISINOPRIL 5 MG TAB PO (09:28)
[2018-07-18] MEDS: LEVETIRACETAM 500 MG TAB PO ×2 (09:29→21:09)
[2018-07-18] MEDS: GABAPENTIN 400 MG CAP PO ×2 (13:00→21:08)
[2018-07-18] MEDS: oxyCODONE 15 MG TAB PO ×2 (13:44→21:08)
[2018-07-18 15:33] LABS: ADD MAN DIFF? NO
[2018-07-18 15:36] LABS: WHITE BLOOD COUNT 10.4 10^3/ul (4.8-10.8)
[2018-07-18 15:36] LABS: BASOPHILS % 0.4 % (0.0-2.0); EOSINOPHILS # 0.3 10^3/ul (0.0-0.5); EOSINOPHILS % 3.1 % (0.0-7.0); HEMOGLOBIN 8.8 g/dl (14.0-18.0); LYMPHOCYTES # 1.4 10^3/ul (0.8-2.9); LYMPHOCYTES % 13.8 % (15.0-51.0); MEAN CORPUSCULAR HEMOGLOBIN 28.2 pg (29.0-33.0); MEAN CORPUSCULAR HGB CONC 31.4 g/dl (32.0-37.0); MEAN CORPUSCULAR VOLUME 89.7 fl (82.0-101.0); MEAN PLATELET VOLUME 10.1 fl (7.4-10.4); MONOCYTE # 0.7 10^3/ul (0.3-0.9); NEUTROPHIL # 7.8 10^3/ul (1.6-7.5); NEUTROPHILS % 74.9 % (39.0-77.0); PLATELET COUNT 334 10^3/UL (140-415); RED BLOOD COUNT 3.12 10^6/ul (4.70-6.10); RED CELL DISTRIBUTION WIDTH 19.1 % (11.5-14.5)
[2018-07-18 20:46] LABS: ADD MAN DIFF? NO
[2018-07-18 20:54] LABS: BASOPHIL # 0.1 10^3/ul (0.0-0.1); BASOPHILS % 0.7 % (0.0-2.0); EOSINOPHILS # 0.4 10^3/ul (0.0-0.5); EOSINOPHILS % 5.2 % (0.0-7.0); HEMATOCRIT 28.9 % (42.0-52.0); LYMPHOCYTES # 1.6 10^3/ul (0.8-2.9); LYMPHOCYTES % 21.5 % (15.0-51.0); MEAN CORPUSCULAR HEMOGLOBIN 28.1 pg (29.0-33.0); MEAN CORPUSCULAR HGB CONC 31.1 g/dl (32.0-37.0); MEAN CORPUSCULAR VOLUME 90.3 fl (82.0-101.0); MEAN PLATELET VOLUME 9.8 fl (7.4-10.4); MONOCYTE # 0.5 10^3/ul (0.3-0.9); MONOCYTES % 6.8 % (0.0-11.0); NEUTROPHILS % 65.3 % (39.0-77.0); PLATELET COUNT 332 10^3/UL (140-415)
[2018-07-18 20:54] LABS: WHITE BLOOD COUNT 7.6 10^3/ul (4.8-10.8)
[2018-07-18] MEDS: MIRTAZAPINE 15 MG TAB PO (21:08)
[2018-07-18] MEDS: ATORVASTATIN 20 MG TAB PO (21:08)
[2018-07-19] MEDS: oxyCODONE 15 MG TAB PO ×2 (03:45→17:01)
[2018-07-19] MEDS: SOD CHLORIDE 0.9% 1,000 ML IV ×2 (03:46→17:00)
[2018-07-19] MEDS: GABAPENTIN 400 MG CAP PO ×3 (04:03→21:39)
[2018-07-19] MEDS: PANTOPRAZOLE 40 MG INJ IV ×2 (05:23→17:37)
[2018-07-19] MEDS: QUETIAPINE 25 MG TAB PO ×3 (05:23→21:40)
[2018-07-19] MEDS: SUCRALFATE 1 GM TAB PO ×3 (05:57→17:37)
[2018-07-19] MEDS: LEVETIRACETAM 500 MG TAB PO ×2 (08:50→21:39)
[2018-07-19] MEDS: FLUOXETINE 20 MG CAP PO (08:50)
[2018-07-19] MEDS: SPIRONOLACTONE 25 MG TAB PO (08:52)
[2018-07-19] MEDS: LISINOPRIL 5 MG TAB PO (08:53)
[2018-07-19] MEDS ORDERED: ALBUTEROL/IPRATROPIUM (NEB) 3 ML AMP HHN (10:30)
[2018-07-19] MEDS: MIRTAZAPINE 15 MG TAB PO (21:39)
[2018-07-19] MEDS: ATORVASTATIN 20 MG TAB PO (21:39)
[2018-07-20] MEDS: SUCRALFATE 1 GM TAB PO ×4 (00:09→18:23)
[2018-07-20] MEDS: oxyCODONE 15 MG TAB PO ×4 (00:49→20:55)
[2018-07-20 05:18] LABS: ADD MAN DIFF? NO
[2018-07-20 05:28] LABS: BASOPHILS % 0.6 % (0.0-2.0); EOSINOPHILS # 0.6 10^3/ul (0.0-0.5); EOSINOPHILS % 8.6 % (0.0-7.0); HEMATOCRIT 27.3 % (42.0-52.0); HEMOGLOBIN 8.6 g/dl (14.0-18.0); LYMPHOCYTES # 1.4 10^3/ul (0.8-2.9); MEAN CORPUSCULAR HEMOGLOBIN 28.5 pg (29.0-33.0); MEAN CORPUSCULAR HGB CONC 31.5 g/dl (32.0-37.0); MEAN CORPUSCULAR VOLUME 90.4 fl (82.0-101.0); MONOCYTE # 0.6 10^3/ul (0.3-0.9); MONOCYTES % 9.4 % (0.0-11.0); NEUTROPHIL # 3.9 10^3/ul (1.6-7.5); NEUTROPHILS % 59.8 % (39.0-77.0); PLATELET COUNT 352 10^3/UL (140-415); RED BLOOD COUNT 3.02 10^6/ul (4.70-6.10)
[2018-07-20 05:28] LABS: WHITE BLOOD COUNT 6.5 10^3/ul (4.8-10.8)
[2018-07-20] MEDS: SOD CHLORIDE 0.9% 1,000 ML IV ×3 (05:32→18:23)
[2018-07-20] MEDS: QUETIAPINE 25 MG TAB PO ×3 (05:33→21:00)
[2018-07-20] MEDS: PANTOPRAZOLE 40 MG INJ IV ×2 (05:33→18:22)
[2018-07-20] MEDS: GABAPENTIN 400 MG CAP PO ×3 (05:33→20:56)
[2018-07-20 05:55] LABS: ALANINE AMINOTRANSFERASE 49 IU/L (13-69); ALBUMIN 2.3 g/dl (3.3-4.9); ALBUMIN/GLOBULIN RATIO 0.79; ALKALINE PHOSPHATASE 63 IU/L (42-121); ANION GAP 9 (5-13); ASPARTATE AMINO TRANSFERASE 28 IU/L (15-46); BLOOD UREA NITROGEN 9 mg/dl (7-20); CARBON DIOXIDE 27 mmol/L (21-31); CHLORIDE 105 mmol/L (97-110); CREATININE 0.91 mg/dl (0.61-1.24); Estimated GFR > 60 mL/min (>60); GLUCOSE 89 mg/dl (70-220); POTASSIUM 3.7 mmol/L (3.5-5.1); SODIUM 141 mmol/L (135-144); TOTAL PROTEIN 5.2 g/dl (6.1-8.1)
[2018-07-20 06:00] LABS: MAGNESIUM 1.7 mg/dl (1.7-2.5)
[2018-07-20 06:00] LABS: PHOSPHORUS 3.3 mg/dl (2.5-4.9)
[2018-07-20] MEDS: LEVETIRACETAM 500 MG TAB PO ×2 (09:41→20:55)
[2018-07-20] MEDS: SPIRONOLACTONE 25 MG TAB PO (09:42)
[2018-07-20] MEDS: LISINOPRIL 5 MG TAB PO (09:42)
[2018-07-20] MEDS: FLUOXETINE 20 MG CAP PO (09:42)
[2018-07-20] MEDS: MIRTAZAPINE 15 MG TAB PO (20:56)
[2018-07-20] MEDS: ATORVASTATIN 20 MG TAB PO (20:56)
[2018-07-21] MEDS: SUCRALFATE 1 GM TAB PO ×4 (00:13→17:41)
[2018-07-21] MEDS: oxyCODONE 15 MG TAB PO ×3 (04:03→17:41)
[2018-07-21] MEDS: GABAPENTIN 400 MG CAP PO ×3 (04:03→21:03)
[2018-07-21] MEDS: PANTOPRAZOLE 40 MG INJ IV ×2 (05:51→17:42)
[2018-07-21] MEDS: SOD CHLORIDE 0.9% 1,000 ML IV (05:51)
[2018-07-21] MEDS: QUETIAPINE 25 MG TAB PO ×3 (05:51→21:03)
[2018-07-21] MEDS: FLUOXETINE 20 MG CAP PO ×2 (09:00→12:59)
[2018-07-21] MEDS: SPIRONOLACTONE 25 MG TAB PO (09:00)
[2018-07-21] MEDS: LISINOPRIL 5 MG TAB PO (09:00)
[2018-07-21] MEDS ORDERED: hydrALAzine 20 MG INJ IV (10:30)
[2018-07-21] MEDS: DEXTROSE 5%-0.45% NACL 1,000 ML IV (10:38)
[2018-07-21 10:56] LABS: ADD MAN DIFF? NO
[2018-07-21 11:00] LABS: WHITE BLOOD COUNT 5.7 10^3/ul (4.8-10.8)
[2018-07-21 11:00] LABS: BASOPHILS % 0.7 % (0.0-2.0); EOSINOPHILS # 0.6 10^3/ul (0.0-0.5); EOSINOPHILS % 9.7 % (0.0-7.0); HEMATOCRIT 31.4 % (42.0-52.0); HEMOGLOBIN 9.7 g/dl (14.0-18.0); LYMPHOCYTES # 1.2 10^3/ul (0.8-2.9); LYMPHOCYTES % 21.8 % (15.0-51.0); MEAN CORPUSCULAR HEMOGLOBIN 27.8 pg (29.0-33.0); MEAN CORPUSCULAR HGB CONC 30.9 g/dl (32.0-37.0); MEAN PLATELET VOLUME 9.7 fl (7.4-10.4); MONOCYTE # 0.6 10^3/ul (0.3-0.9); MONOCYTES % 10.4 % (0.0-11.0); NEUTROPHIL # 3.2 10^3/ul (1.6-7.5); NEUTROPHILS % 56.9 % (39.0-77.0); PLATELET COUNT 327 10^3/UL (140-415); RED BLOOD COUNT 3.49 10^6/ul (4.70-6.10); RED CELL DISTRIBUTION WIDTH 19.1 % (11.5-14.5)
[2018-07-21 11:17] LABS: ALANINE AMINOTRANSFERASE 40 IU/L (13-69); ALBUMIN 2.5 g/dl (3.3-4.9); ALKALINE PHOSPHATASE 67 IU/L (42-121); ANION GAP 9 (5-13); ASPARTATE AMINO TRANSFERASE 30 IU/L (15-46); BLOOD UREA NITROGEN 7 mg/dl (7-20); CARBON DIOXIDE 26 mmol/L (21-31); CHLORIDE 106 mmol/L (97-110); CREATININE 0.87 mg/dl (0.61-1.24); Estimated GFR > 60 mL/min (>60); GLUCOSE 91 mg/dl (70-220); SODIUM 141 mmol/L (135-144); TOTAL PROTEIN 5.6 g/dl (6.1-8.1)
[2018-07-21] MEDS: LEVETIRACETAM 1000 MG (PMX) 100 ML IVPB ×2 (12:59→21:02)
[2018-07-21] MEDS: MIRTAZAPINE 15 MG TAB PO (21:03)
[2018-07-21] MEDS: ATORVASTATIN 20 MG TAB PO (21:03)
[2018-07-21] MEDS: clonAZEPAM 0.5 MG TAB PO (21:09)
[2018-07-22 05:27] LABS: ADD MAN DIFF? NO
[2018-07-22] MEDS: SUCRALFATE 1 GM TAB PO ×3 (05:36→11:04)
[2018-07-22] MEDS: GABAPENTIN 400 MG CAP PO ×2 (05:36→12:26)
[2018-07-22] MEDS: PANTOPRAZOLE 40 MG INJ IV (05:37)
[2018-07-22] MEDS: QUETIAPINE 25 MG TAB PO ×2 (05:37→14:42)
[2018-07-22] MEDS: oxyCODONE 15 MG TAB PO ×2 (05:40→12:28)
[2018-07-22 05:42] LABS: WHITE BLOOD COUNT 5.9 10^3/ul (4.8-10.8)
[2018-07-22 05:42] LABS: BASOPHILS % 0.7 % (0.0-2.0); EOSINOPHILS # 0.6 10^3/ul (0.0-0.5); EOSINOPHILS % 9.6 % (0.0-7.0); HEMATOCRIT 28.5 % (42.0-52.0); HEMOGLOBIN 8.9 g/dl (14.0-18.0); LYMPHOCYTES # 1.5 10^3/ul (0.8-2.9); LYMPHOCYTES % 24.8 % (15.0-51.0); MEAN CORPUSCULAR HEMOGLOBIN 28.4 pg (29.0-33.0); MEAN CORPUSCULAR HGB CONC 31.2 g/dl (32.0-37.0); MEAN CORPUSCULAR VOLUME 91.1 fl (82.0-101.0); MEAN PLATELET VOLUME 10.1 fl (7.4-10.4); MONOCYTE # 0.7 10^3/ul (0.3-0.9); NEUTROPHIL # 3.2 10^3/ul (1.6-7.5); NEUTROPHILS % 53.1 % (39.0-77.0); PLATELET COUNT 309 10^3/UL (140-415); RED BLOOD COUNT 3.13 10^6/ul (4.70-6.10); RED CELL DISTRIBUTION WIDTH 18.9 % (11.5-14.5)
[2018-07-22 06:16] LABS: ANION GAP 9 (5-13); BLOOD UREA NITROGEN 9 mg/dl (7-20); CALCIUM 8.1 mg/dl (8.4-10.2); CARBON DIOXIDE 30 mmol/L (21-31); CHLORIDE 104 mmol/L (97-110); CREATININE 1.11 mg/dl (0.61-1.24); Estimated GFR > 60 mL/min (>60); GLUCOSE 91 mg/dl (70-220); MAGNESIUM 1.6 mg/dl (1.7-2.5); PHOSPHORUS 3.3 mg/dl (2.5-4.9); POTASSIUM 3.9 mmol/L (3.5-5.1); SODIUM 143 mmol/L (135-144)
[2018-07-22] MEDS: FLUOXETINE 20 MG CAP PO (08:29)
[2018-07-22] MEDS: LEVETIRACETAM 1000 MG (PMX) 100 ML IVPB (08:29)
[2018-07-22] MEDS: SPIRONOLACTONE 25 MG TAB PO (08:33)
[2018-07-22] MEDS: LISINOPRIL 5 MG TAB PO (08:34)
[2018-07-22] MEDS: MAGNESIUM OXIDE 400 MG TAB PO (11:05)
[2018-07-22] MEDS: ASPIRIN 81 MG TAB PO (11:05)
[2018-07-22] MEDS ORDERED: PANTOPRAZOLE (EC) 40 MG TAB PO (18:00)
== END 2018-07-22 15:37 | disposition home or self-care (01) | DRG 381 ==
LOC: MS1 22:44 → E/R 20:05
DX: K22.11 Ulcer of esophagus with bleeding (principal); J84.9 Interstitial pulmonary disease, unspecified; E44.0 Moderate protein-calorie malnutrition; I42.9 Cardiomyopathy, unspecified; Z68.1 Body mass index [BMI] 19.9 or less, adult; K29.71 Gastritis, unspecified, with bleeding; D50.9 Iron deficiency anemia, unspecified; F12.10 Cannabis abuse, uncomplicated; K92.0 Hematemesis; F32.9 Major depressive disorder, single episode, unspecified; G40.909 Epilepsy, unspecified, not intractable, without status epilepticus; E78.5 Hyperlipidemia, unspecified; M47.9 Spondylosis, unspecified; G89.4 Chronic pain syndrome; I25.10 Atherosclerotic heart disease of native coronary artery without angina pectoris; K64.9 Unspecified hemorrhoids; I10 Essential (primary) hypertension; F41.9 Anxiety disorder, unspecified; F17.210 Nicotine dependence, cigarettes, uncomplicated; R47.02 Dysphasia; Z79.82 Long term (current) use of aspirin
CPT/HCPCS: 71045; 74176; 80048; 80053; 83690; 83735; 84100; 84484; 85025; 85610; 85730; 86850; 86900; 86901; 87338; 92610; 93005; 96374; 96375; 99285-25

== ENCOUNTER 2018-07-30 09:46 | Emergency (ER) | payer MEDICARE ==
[2018-07-30 10:55] LABS: ADD MAN DIFF? NO
[2018-07-30 11:01] LABS: WHITE BLOOD COUNT 5.6 10^3/ul (4.8-10.8)
[2018-07-30 11:01] LABS: BASOPHILS % 0.5 % (0.0-2.0); EOSINOPHILS # 0.3 10^3/ul (0.0-0.5); EOSINOPHILS % 5.2 % (0.0-7.0); HEMATOCRIT 34.1 % (42.0-52.0); HEMOGLOBIN 10.6 g/dl (14.0-18.0); LYMPHOCYTES # 0.9 10^3/ul (0.8-2.9); LYMPHOCYTES % 16.8 % (15.0-51.0); MEAN CORPUSCULAR HEMOGLOBIN 28.4 pg (29.0-33.0); MEAN CORPUSCULAR HGB CONC 31.1 g/dl (32.0-37.0); MEAN CORPUSCULAR VOLUME 91.4 fl (82.0-101.0); MEAN PLATELET VOLUME 9.6 fl (7.4-10.4); MONOCYTE # 0.4 10^3/ul (0.3-0.9); MONOCYTES % 6.6 % (0.0-11.0); NEUTROPHIL # 3.9 10^3/ul (1.6-7.5); NEUTROPHILS % 70.5 % (39.0-77.0); PLATELET COUNT 249 10^3/UL (140-415); RED BLOOD COUNT 3.73 10^6/ul (4.70-6.10); RED CELL DISTRIBUTION WIDTH 18.8 % (11.5-14.5)
[2018-07-30 11:20] LABS: ALANINE AMINOTRANSFERASE 25 IU/L (13-69); ALBUMIN 3.6 g/dl (3.3-4.9); ALKALINE PHOSPHATASE 90 IU/L (42-121); ANION GAP 7 (5-13); ASPARTATE AMINO TRANSFERASE 33 IU/L (15-46); BLOOD UREA NITROGEN 20 mg/dl (7-20); CALCIUM 9.5 mg/dl (8.4-10.2); CARBON DIOXIDE 30 mmol/L (21-31); CHLORIDE 102 mmol/L (97-110); CREATININE 1.37 mg/dl (0.61-1.24); Estimated GFR 52 mL/min (>60); GLUCOSE 120 mg/dl (70-220); POTASSIUM 4.7 mmol/L (3.5-5.1); SODIUM 139 mmol/L (135-144); TOTAL PROTEIN 7.2 g/dl (6.1-8.1)
[2018-07-30 11:31] LABS: TROPONIN-I < 0.012 ng/ml (0.000-0.120)
[2018-07-30] MEDS: SOD CHLORIDE 0.9% 1,000 ML IV (13:05)
== END 2018-07-30 14:00 | disposition home or self-care (01) ==
LOC: E/R 09:46
DX: I95.9 Hypotension, unspecified (principal); R40.2142 Coma scale, eyes open, spontaneous, at arrival to emergency department; R40.2362 Coma scale, best motor response, obeys commands, at arrival to emergency department; R40.2252 Coma scale, best verbal response, oriented, at arrival to emergency department; F17.210 Nicotine dependence, cigarettes, uncomplicated; Z79.01 Long term (current) use of anticoagulants; Z79.82 Long term (current) use of aspirin
CPT/HCPCS: 36415; 80053; 84484; 85025; 93005; 99284-25

== ENCOUNTER 2018-08-08 15:49 | Emergency (ER) | payer MEDICARE ==
[2018-08-08 16:55] LABS: ADD MAN DIFF? NO
[2018-08-08] MEDS: SOD CHLORIDE 0.9% 1,000 ML IV (16:57)
[2018-08-08 16:58] LABS: WHITE BLOOD COUNT 7.7 10^3/ul (4.8-10.8)
[2018-08-08 16:58] LABS: BASOPHIL # 0.1 10^3/ul (0.0-0.1); BASOPHILS % 0.6 % (0.0-2.0); EOSINOPHILS # 0.2 10^3/ul (0.0-0.5); EOSINOPHILS % 2.8 % (0.0-7.0); HEMATOCRIT 34.3 % (42.0-52.0); HEMOGLOBIN 10.9 g/dl (14.0-18.0); LYMPHOCYTES # 1.4 10^3/ul (0.8-2.9); LYMPHOCYTES % 17.9 % (15.0-51.0); MEAN CORPUSCULAR HEMOGLOBIN 28.3 pg (29.0-33.0); MEAN CORPUSCULAR HGB CONC 31.8 g/dl (32.0-37.0); MEAN CORPUSCULAR VOLUME 89.1 fl (82.0-101.0); MEAN PLATELET VOLUME 10.2 fl (7.4-10.4); MONOCYTE # 0.8 10^3/ul (0.3-0.9); MONOCYTES % 10.1 % (0.0-11.0); NEUTROPHIL # 5.3 10^3/ul (1.6-7.5); NEUTROPHILS % 68.1 % (39.0-77.0); PLATELET COUNT 223 10^3/UL (140-415); RED BLOOD COUNT 3.85 10^6/ul (4.70-6.10); RED CELL DISTRIBUTION WIDTH 18.3 % (11.5-14.5)
[2018-08-08 17:08] LABS: HEMOGLOBIN A1C 5.2 % (0-5.9)
[2018-08-08 17:20] LABS: ANION GAP 4 (5-13); BLOOD UREA NITROGEN 20 mg/dl (7-20); CALCIUM 9.6 mg/dl (8.4-10.2); CARBON DIOXIDE 29 mmol/L (21-31); CHLORIDE 105 mmol/L (97-110); CHOL/HDL RATIO 2.9 RATIO; CHOLESTEROL 126 mg/dl (100-200); CREATININE 0.84 mg/dl (0.61-1.24); Estimated GFR > 60 mL/min (>60); GLUCOSE 108 mg/dl (70-220); HDL CHOLESTEROL 43 mg/dl (30-78); LDL CHOLESTEROL,CALCULATED 64 mg/dl; POTASSIUM 3.4 mmol/L (3.5-5.1); SODIUM 138 mmol/L (135-144); TRIGLYCERIDES 93 mg/dl (0-149)
[2018-08-08] MEDS: ASPIRIN 325 MG TAB PO (17:22)
[2018-08-08 17:30] LABS: INR 0.98; PROTIME 13.1 Sec (11.9-14.9)
[2018-08-08 17:31] LABS: PARTIAL THROMBOPLASTIN TIME 33.6 Sec (23.0-35.0); TROPONIN-I < 0.012 ng/ml (0.000-0.120)
[2018-08-08] MEDS: LEVETIRACETAM 500 MG TAB PO (19:06)
== END 2018-08-08 19:15 | disposition home or self-care (01) ==
LOC: E/R 15:49
DX: R13.10 Dysphagia, unspecified (principal); R40.2142 Coma scale, eyes open, spontaneous, at arrival to emergency department; R40.2362 Coma scale, best motor response, obeys commands, at arrival to emergency department; R40.2252 Coma scale, best verbal response, oriented, at arrival to emergency department; I50.9 Heart failure, unspecified; R06.02 Shortness of breath; R93.0 Abnormal findings on diagnostic imaging of skull and head, not elsewhere classified; Z79.01 Long term (current) use of anticoagulants; Z87.891 Personal history of nicotine dependence; Z79.82 Long term (current) use of aspirin
CPT/HCPCS: 36415; 70450; 71045; 80048; 80061; 83036; 84484; 85025; 85610; 85730; 86850; 86900; 86901; 93005; 99285-25

== ENCOUNTER 2018-12-13 09:14 | Emergency (ER) | payer MEDICARE ==
[2018-12-13] MEDS: oxyCODONE 5 MG TAB PO (09:49)
== END 2018-12-13 10:15 | disposition home or self-care (01) ==
LOC: E/R 09:14
DX: M51.36 Other intervertebral disc degeneration, lumbar region (principal); Z79.01 Long term (current) use of anticoagulants; Z79.82 Long term (current) use of aspirin; Z87.891 Personal history of nicotine dependence
CPT/HCPCS: 99283

== ENCOUNTER 2018-12-30 11:04 | Emergency (ER) | payer SELFPAY, MEDICARE | END 2018-12-30 12:40 | disposition left against medical advice (07) | LOC: E/R 11:04 | DX: Z53.21 Procedure and treatment not carried out due to patient leaving prior to being seen by health care provider (principal) ==

== ENCOUNTER 2019-02-25 09:53 | Inpatient (IN) | payer MEDICARE ==
[2019-02-25 10:08] LABS: AADO2 Arterial 116.1 mmHg (7.0-24.0); Allen Test ACCEPTAB; Arterial Blood Gas Oxygen Sat 94.4 mmHG (95.0-98.0); Arterial COHb 0.4 % (0.0-3.0); Arterial Fraction of Oxyhgb 93.8 % (93.0-99.0); Arterial MetHb 0.2 % (0.0-1.5); Arterial pCO2 46.9 mmhg (35-45); Blood Gas IEPAP 15/5; MODE MASK - BIPAP; Site Right Radial
[2019-02-25] MEDS: METHYLPREDNISOLONE 125 MG INJ IV (10:17)
[2019-02-25] MEDS: ALBUTEROL 0.5% (NEB) 2.5 MG/0.5 ML AMP INH (10:18)
[2019-02-25] MEDS: IPRATROPIUM (NEB) 0.5 MG/2.5 ML AMP INH (10:18)
[2019-02-25 10:19] LABS: ADD MAN DIFF? NO
[2019-02-25 10:20] LABS: BASOPHIL # 0.1 10^3/ul (0.0-0.1); BASOPHILS % 0.6 % (0.0-2.0); EOSINOPHILS # 0.7 10^3/ul (0.0-0.5); EOSINOPHILS % 6.5 % (0.0-7.0); HEMATOCRIT 35.5 % (42.0-52.0); HEMOGLOBIN 10.8 g/dl (14.0-18.0); LYMPHOCYTES # 1.9 10^3/ul (0.8-2.9); MEAN CORPUSCULAR HEMOGLOBIN 28.7 pg (29.0-33.0); MEAN CORPUSCULAR HGB CONC 30.4 g/dl (32.0-37.0); MEAN CORPUSCULAR VOLUME 94.4 fl (82.0-101.0); MEAN PLATELET VOLUME 9.5 fl (7.4-10.4); MONOCYTE # 0.7 10^3/ul (0.3-0.9); NEUTROPHIL # 6.6 10^3/ul (1.6-7.5); NEUTROPHILS % 65.9 % (39.0-77.0); PLATELET COUNT 363 10^3/UL (140-415); RED BLOOD COUNT 3.76 10^6/ul (4.70-6.10); RED CELL DISTRIBUTION WIDTH 15.9 % (11.5-14.5)
[2019-02-25 10:20] LABS: WHITE BLOOD COUNT 10.1 10^3/ul (4.8-10.8)
[2019-02-25 10:40] LABS: INR 0.98; PROTIME 13.1 Sec (11.9-14.9)
[2019-02-25 10:43] LABS: ANION GAP 9 (5-13); BLOOD UREA NITROGEN 27 mg/dl (7-20); CALCIUM 9.4 mg/dl (8.4-10.2); CARBON DIOXIDE 29 mmol/L (21-31); CHLORIDE 98 mmol/L (97-110); Estimated GFR > 60 mL/min (>60); GLUCOSE 170 mg/dl (70-220); POTASSIUM 4.8 mmol/L (3.5-5.1); SODIUM 136 mmol/L (135-144)
[2019-02-25 10:54] LABS: B-TYPE NATRIURETIC PEPTIDE 216 PG/ML (0-125); TROPONIN-I < 0.012 ng/ml (0.000-0.120)
[2019-02-25] MEDS: SODIUM CHLORIDE 0.9% 1L BAG IV* (11:17)
[2019-02-25] MEDS: LEVOFLOXACIN 750MG/D5W (PMX) 150 ML IVPB (11:17)
[2019-02-25] MEDS ORDERED: ACETAMINOPHEN 325 MG TAB PO (11:30)
[2019-02-25] MEDS ORDERED: ONDANSETRON 4 MG INJ IV (11:30)
[2019-02-25 13:04] LABS: LACTIC ACID 2.2 mmol/L (0.5-2.0)
[2019-02-25] MEDS ORDERED: IBUPROFEN 600 MG TAB PO (14:00)
[2019-02-25] MEDS ORDERED: NACL 0.9% 3 ML SYG IV (14:00)
[2019-02-25] MEDS ORDERED: ALBUTEROL/IPRATROPIUM (NEB) 3 ML AMP HHN (14:00)
[2019-02-25] MEDS: AZITHROMYCIN 500 MG TAB PO (15:07)
[2019-02-25] MEDS: CEFTRIAXONE 1 GM/50 ML (PMX) 50 ML IVPB (15:08)
[2019-02-25 16:14] LABS: LACTIC ACID 2.5 mmol/L (0.5-2.0)
[2019-02-25] MEDS: SUCRALFATE 1 GM TAB PO ×2 (18:11→23:42)
[2019-02-25] MEDS: DIVALPROEX (EC) 250 MG TAB PO (20:14)
[2019-02-25] MEDS: ATORVASTATIN 20 MG TAB PO (20:14)
[2019-02-25] MEDS: OXYCODONE/ACETAMINOPHEN (10/325) TAB PO (20:15)
[2019-02-25] MEDS: ALPRAZOLAM 1 MG TAB PO (23:46)
[2019-02-26] MEDS: PANTOPRAZOLE (EC) 40 MG TAB PO (05:54)
[2019-02-26] MEDS: SUCRALFATE 1 GM TAB PO ×2 (05:54→12:08)
[2019-02-26 06:42] LABS: ADD MAN DIFF? NO
[2019-02-26 06:44] LABS: ABNORMAL IP MESSAGE 1; BASOPHILS % 0.1 % (0.0-2.0); HEMATOCRIT 31.4 % (42.0-52.0); HEMOGLOBIN 9.8 g/dl (14.0-18.0); LYMPHOCYTES # 0.9 10^3/ul (0.8-2.9); LYMPHOCYTES % 3.9 % (15.0-51.0); MEAN CORPUSCULAR HEMOGLOBIN 28.7 pg (29.0-33.0); MEAN CORPUSCULAR HGB CONC 31.2 g/dl (32.0-37.0); MEAN CORPUSCULAR VOLUME 91.8 fl (82.0-101.0); MEAN PLATELET VOLUME 9.7 fl (7.4-10.4); MONOCYTE # 1.2 10^3/ul (0.3-0.9); NEUTROPHIL # 20.6 10^3/ul (1.6-7.5); NEUTROPHILS % 90.4 % (39.0-77.0); PLATELET COUNT 348 10^3/UL (140-415); POSITIVE DIFF @See below; RED BLOOD COUNT 3.42 10^6/ul (4.70-6.10); RED CELL DISTRIBUTION WIDTH 15.7 % (11.5-14.5)
[2019-02-26 06:44] LABS: WHITE BLOOD COUNT 22.8 10^3/ul (4.8-10.8)
[2019-02-26 07:09] LABS: ALANINE AMINOTRANSFERASE 15 IU/L (13-69); ALBUMIN 3.4 g/dl (3.3-4.9); ALBUMIN/GLOBULIN RATIO 1.03; ALKALINE PHOSPHATASE 69 IU/L (42-121); ANION GAP 9 (5-13); ASPARTATE AMINO TRANSFERASE 21 IU/L (15-46); BILIRUBIN,INDIRECT 0.4 mg/dl (0-1.1); BILIRUBIN,TOTAL 0.4 mg/dl (0.2-1.3); BLOOD UREA NITROGEN 22 mg/dl (7-20); CALCIUM 9.4 mg/dl (8.4-10.2); CARBON DIOXIDE 25 mmol/L (21-31); CHLORIDE 102 mmol/L (97-110); CREATININE 0.94 mg/dl (0.61-1.24); Estimated GFR > 60 mL/min (>60); GLUCOSE 128 mg/dl (70-220); MAGNESIUM 1.8 mg/dl (1.7-2.5); PHOSPHORUS 3.5 mg/dl (2.5-4.9); POTASSIUM 4.7 mmol/L (3.5-5.1); SODIUM 136 mmol/L (135-144); TOTAL PROTEIN 6.7 g/dl (6.1-8.1)
[2019-02-26] MEDS: CLOPIDOGREL 75 MG TAB PO (08:28)
[2019-02-26] MEDS: DIVALPROEX (EC) 250 MG TAB PO ×2 (08:28→12:09)
[2019-02-26] MEDS: predniSONE 20 MG TAB PO (08:28)
[2019-02-26] MEDS: AZITHROMYCIN 500 MG TAB PO (08:28)
[2019-02-26] MEDS: ASPIRIN 81 MG TAB PO (08:28)
[2019-02-26] MEDS: FLUOXETINE 20 MG CAP PO (08:29)
[2019-02-26] MEDS: SPIRONOLACTONE 25 MG TAB PO (08:29)
[2019-02-26] MEDS: ALPRAZOLAM 1 MG TAB PO (15:32)
== END 2019-02-26 16:30 | DRG 190 ==
LOC: E/R 09:53 → 6WM 11:27
PROC: 5A09357 Assistance with Respiratory Ventilation, Less than 24 Consecutive Hours, Continuous Positive Airway Pressure (ICD-10-PCS; principal; 2019-02-25)
DX: J44.1 Chronic obstructive pulmonary disease with (acute) exacerbation (principal); J18.9 Pneumonia, unspecified organism; E87.2 Acidosis; E44.0 Moderate protein-calorie malnutrition; Z68.1 Body mass index [BMI] 19.9 or less, adult; I42.9 Cardiomyopathy, unspecified; I11.0 Hypertensive heart disease with heart failure; I50.9 Heart failure, unspecified; E78.5 Hyperlipidemia, unspecified; G40.909 Epilepsy, unspecified, not intractable, without status epilepticus; F41.9 Anxiety disorder, unspecified; D64.9 Anemia, unspecified; M54.5 Low back pain; K20.9 Esophagitis, unspecified; Z79.82 Long term (current) use of aspirin; Z95.5 Presence of coronary angioplasty implant and graft; Z87.891 Personal history of nicotine dependence
CPT/HCPCS: 36415; 36600; 71045; 71250; 80048; 80053; 82803; 83036; 83605; 83735; 83880; 84100; 84443; 84484; 85025; 85610; 87040-91; 87081; 93005; 94644; 94660; 96374; 96375; 99285-25